=== PATIENT | male | born 1940 | race Caucasian/White ===

== ENCOUNTER 2019-12-11 17:38 | Inpatient (IN) | payer MEDICARE, OTHER ==
[~2019-12-11] VITALS: Ht 190.5 cm; Wt 127.5 kg
[2019-12-11] MEDS ORDERED: ACETAMINOPHEN 325 MG TABLET PO ONE (18:00)
[2019-12-11] MEDS ORDERED: FURO20TA4 PO (18:09)
[2019-12-11] MEDS ORDERED: EZET10TA32 PO (18:09)
[2019-12-11] MEDS ORDERED: DILT120T2 PO (18:09)
[2019-12-11] MEDS ORDERED: ZOLP10TA2 PO (18:09)
[2019-12-11] MEDS ORDERED: SITA100T PO (18:09)
[2019-12-11] MEDS ORDERED: GABA300C PO (18:09)
[2019-12-11] MEDS ORDERED: POTA10TA17 PO (18:09)
[2019-12-11] MEDS ORDERED: GLIM4TAB37 PO (18:09)
[2019-12-11] MEDS ORDERED: RIVA10TA PO (18:09)
[2019-12-11] MEDS ORDERED: DUTA0.5C16 PO (18:09)
[2019-12-11 18:19] LABS: BASOPHILS # (AUTO) 0.1 /CMM (0.0-0.2); BASOPHILS % (AUTO) 0.7 % (0.0-2.0); EOSINOPHILS % (AUTO) 1.6 % (0.0-6.0); HEMATOCRIT 39 % (39-51); HEMOGLOBIN 12.6 g/dL (13.5-17.5); LYMPHOCYTES # (AUTO) 0.7 /CMM (0.8-4.8); LYMPHOCYTES % (AUTO) 8.6 % (20.0-44.0); MEAN CORPUSCULAR HGB CONC 33 g/dl (31.0-36.0); MEAN CORPUSCULAR VOLUME 88 fL (80-96); MONOCYTES # (AUTO) 0.6 /CMM (0.1-1.30); MONOCYTES % (AUTO) 7.7 % (2.0-12.0); NEUTROPHILS # (AUTO) 6.7 /CMM (1.8-8.9); NEUTROPHILS % (AUTO) 81.4 % (43.0-81.0); PLATELET COUNT (AUTO) 157 /CMM (150-450); RED BLOOD CELL COUNT(AUTO) 4.42 MIL/uL (4.5-6.0); WHITE BLOOD COUNT (AUTO) 8.3 K/uL (4.3-11.0)
--- NOTE | 2019-12-11 18:26 | NUR ---
fever x 1 hour. runny nose since yesterday. on augmentin s/p dental procedure last saturday. PT AAOX4, VSS. RR EVEN & UNLABORED. DENIES CP, SOB, DIZZINESS, N/V/D AT THIS TIME. PT SEEN & EVAL'D BY DR. MARIN. WILL CONT TO MONITOR.
[2019-12-11 18:31] LABS: CALCIUM, SERUM 9.1 mg/dL (8.5-10.1); CARBON DIOXIDE 28 mmol/L (21-32); CHLORIDE 99 mmol/L (98-107); CREATININE 2.1 mg/dL (0.6-1.3); GLUCOSE 174 mg/dL (74-106); POTASSIUM 4.9 mmol/L (3.5-5.1); SODIUM SERUM 133 mmol/L (136-145); UREA NITROGEN, BLOOD 46 mg/dL (7-18)
[2019-12-11 18:36] LABS: ALANINE AMINOTRANSFERASE 30 U/L (12-78); ALBUMIN 3.2 g/dL (3.4-5.0); ALKALINE PHOSPHATASE 77 U/L (46-116); ASPARTATE AMINOTRANSFERASE 21 U/L (15-37); BILIRUBIN,DIRECT 0.3 mg/dL (0.0-0.2); BILIRUBIN,TOTAL 1.8 mg/dL (0.2-1.0); TOTAL PROTEIN, SERUM 7.3 g/dL (6.4-8.2)
[2019-12-11] MEDS ORDERED: ACETAMINOPHEN 325 MG TABLET ONE (18:45)
[2019-12-11 18:55] LABS: APPEARANCE,URINE Clear (CLEAR); BILIRUBIN,URINE Negative (NEGATIVE); BLOOD, URINE Small Ery/uL (NEGATIVE); COLOR,URINE Yellow (YELLOW); KETONES,URINE Negative (NEGATIVE); LEUKOCYTE ESTERASE ,URINE Negative (NEGATIVE); NITRITE, URINE Negative (NEGATIVE); PH,URINE 5.5 (5.0-8.0); PROTEIN,URINE >=300 mg/dl (NEGATIVE); UGLUCOSE Negative (NEGATIVE); UROBILINOGEN,URINE 0.2 EU/dL (0.2)
--- NOTE | 2019-12-11 18:58 | NUR ---
LAB CALLED PT COVID-19 (-) NEG.
[2019-12-11] MEDS ORDERED: OLME20TA13 PO (19:35)
[2019-12-11] MEDS ORDERED: FINA1TAB11 PO (19:35)
[2019-12-11 19:38] LABS: BACTERIA,URINE Few /HPF (None Seen); HYALINE CASTS, URINE Rare /LPF (None Seen); MUCUS,URINE Few /LPF (None Seen); SQUAMOUS EPITHELIAL CELL,UR Few /HPF (None Seen); URINE AMORPHOUS URATE Few /HPF (None Seen)
[2019-12-11] MEDS ORDERED: HYDROCODONE/APAP 5/325MG TABLET PO PRN (20:00)
[2019-12-11] MEDS ORDERED: ONDANSETRON HCL/PF 4 MG/2 ML VIAL IVP PRN (20:00)
[2019-12-11] MEDS ORDERED: Z GUARD REMEDY 2 OZ OINT TP PRN (20:00)
[2019-12-11] MEDS ORDERED: MORPHINE SULFATE INJ 2 MG/ML DISP.SYRIN IV PRN (20:00)
[2019-12-11] MEDS ORDERED: MAGNESIUM HYDROXIDE 30 ML UDC PO PRN (20:00)
[2019-12-11] MEDS ORDERED: MAG HYDROX/AL HYDROX/SIMETH 30 ML UDC PO PRN (20:00)
[2019-12-11] MEDS ORDERED: DEXTROSE 50%-WATER 50 ML DISP.SYRIN IV PRN (20:00)
[2019-12-11] MEDS ORDERED: CLINDAMYCIN 600 MG in IV D5W 50 ML IV SCH (21:00)
[2019-12-11] MEDS ORDERED: CLINDAMYCIN IV RTU IN D5W 600 MG/50 ML PIGGYBACK IV SCH (21:00)
--- NOTE | 2019-12-11 21:21 | NUR ---
REPORT GIVEN TO BOONE GARCIA FOR JESUS.
[2019-12-11 21:25] VITALS: BP 150/64
--- NOTE | 2019-12-11 21:25 | NUR ---
TELE/RN NOTES RECEIVED REPORT FROM LIFE SKILLS TRAINER ELODIA, PATIENT IS COMING TO ROOM 326-1.
[2019-12-11] MEDS: ZOLPIDEM TARTRATE 10 MG TABLET PO SCH (22:00)
[2019-12-11] MEDS: BLOOD SUGAR DIAGNOSTIC 1 EACH STRIP IN SCH (22:07)
[2019-12-11] MEDS ORDERED: CLINDAMYCIN 900 MG/6 ML VIAL ONE (22:26)
--- NOTE | 2019-12-11 22:30 | NUR ---
TELE/RN NOTES PATIENT ARRIVED ON TO UNIT AT 2135HRS VIA GURNEY. PATIENT SUSTAINED NO INJURIES DURING TRANSPORT. PATIENT WAS ABLE TO AMBULATE FROM GURNEY TO BED BY SELF SAFELY. PATIENT IS ALERT AND ORIENTED X 4. STATES NO PAIN AT THIS TIME. PATIENT IS STABLE ON ROOM AIR. BREATHING IS EVEN AND UNLABORED. TELE READING A FIB 79 BPM. PATIENT HAS IV ACCESS ON LEFT AC INTACT. PATIENT REFUSED FULL BODY SKIN ASSESSMENT AT THIS TIME, WANTED TO REST PATIENT STATED. PATIENT WAS ABLE TO SIGN BELONGINGS LIST. PATIENT IN NO SIGNS OF DISTRESS. SAFETY MEASURES ARE IN PLACE, BED IS LOCKED AND PLACED IN THE LOW POSITION, SIDE RAILS UP X 2. CALL LIGHT IS WITHIN REACH OF PATIENT. WILL CONTINUE TO MONITOR DURING SHIFT.
[2019-12-11] MEDS: CLINDAMYCIN 600 MG in IV D5W 50 ML IV SCH (23:43)
[2019-12-12] VITALS (8 sets, daily range): BP systolic 137–196; BP diastolic 64–103
--- NOTE | 2019-12-12 06:20 | NUR ---
TELE/RN NOTES PATIENT ACCU CHEK 222. PATIENT REFUSE TO TAKE INSULIN THIS MORNING PER SLIDING SCALE. RISK AND BENEFITS HAVE BEEN EXPLAINED TO PATIENT. WILL CONTINUE TO EDUCATE PATIENT. PATIENT IS ABLE TO EAT WITH NO PROBLEMS.
--- NOTE | 2019-12-12 06:40 | NUR ---
TELE/RN CLOSING NOTES PATIENT IS IN BED RESTING. ALERT AND ORIENTED X 4. TELE READING SR 78 . PATIENTS BREATHING IS EVEN AND UNLABORED. NO SIGNS OF RESPIRATORY DISTRESS NOTED. PATIENT HAS IV ACCESS ON LEFT AC INTACT SL. PATIENT STATES NO PAIN AT THIS TIME. PATIENT IS ABLE TO AMBULATE BY SELF. ALL PATIENTS NEEDS HAVE BEEN MET DURING SHIFT. SAFETY MEASURES ARE IN PLACE, BED IS LOCKED AND PLACED IN THE LOW POSITION, SIDE RAILS UP X 2. CALL LIGHT IS WITHIN REACH. WILL ENDORSE CARE TO DAY SHIFT NURSE.
[2019-12-12] MEDS: BLOOD SUGAR DIAGNOSTIC 1 EACH STRIP IN SCH ×4 (07:12→21:48)
[2019-12-12 07:40] LABS: BASOPHILS % (AUTO) 0.3 % (0.0-2.0); EOSINOPHILS % (AUTO) 2.5 % (0.0-6.0); HEMATOCRIT 37 % (39-51); HEMOGLOBIN 12.2 g/dL (13.5-17.5); LYMPHOCYTES # (AUTO) 0.9 /CMM (0.8-4.8); LYMPHOCYTES % (AUTO) 12.1 % (20.0-44.0); MEAN CORPUSCULAR HGB CONC 33 g/dl (31.0-36.0); MEAN CORPUSCULAR VOLUME 87 fL (80-96); MONOCYTES # (AUTO) 0.6 /CMM (0.1-1.30); NEUTROPHILS # (AUTO) 5.8 /CMM (1.8-8.9); NEUTROPHILS % (AUTO) 77.1 % (43.0-81.0); PLATELET COUNT (AUTO) 159 /CMM (150-450); RED BLOOD CELL COUNT(AUTO) 4.26 MIL/uL (4.5-6.0); WHITE BLOOD COUNT (AUTO) 7.6 K/uL (4.3-11.0)
[2019-12-12 07:43] LABS: CALCIUM, SERUM 8.8 mg/dL (8.5-10.1); CARBON DIOXIDE 25 mmol/L (21-32); CHLORIDE 100 mmol/L (98-107); CREATININE 2.1 mg/dL (0.6-1.3); GLUCOSE 216 mg/dL (74-106); MAGNESIUM 2.3 mg/dL (1.8-2.4); PHOSPHORUS 2.7 mg/dL (2.5-4.9); SODIUM SERUM 133 mmol/L (136-145); UREA NITROGEN, BLOOD 43 mg/dL (7-18)
[2019-12-12 07:50] LABS: CHOLESTEROL 150 mg/dL (<200); HDL CHOLESTEROL 35 mg/dL (40-60); LDL 97 mg/dL (0-99); THYROID STIMULATING HORMONE 1.017 uIU/mL (0.358-3.74); TRIGLYCERIDES 142 mg/dL (30-150)
[2019-12-12] MEDS ORDERED: DILTIAZEM HCL CD 120 MG PO SCH (09:00)
[2019-12-12] MEDS ORDERED: RIVAROXABAN 10 MG TABLET PO SCH (09:00)
[2019-12-12] MEDS: APIXABAN 2.5 MG TABLET PO SCH ×2 (10:00→16:50)
--- NOTE | 2019-12-12 10:00 | NUR ---
MATERIAL CONTROL SPECIALIST NOTES RECEIVED PATIENT FOR CONTINUATION OF CARE.
[2019-12-12] MEDS: DILTIAZEM HCL CD 120 MG PO SCH (10:01)
[2019-12-12] MEDS: EZETIMIBE 10 MG TABLET PO SCH (10:01)
[2019-12-12] MEDS: hydrALAZINE HCL 50 MG TABLET PO SCH ×3 (10:03→17:11)
[2019-12-12] MEDS: PANTOPRAZOLE 40 MG TABLET.DR PO SCH (10:04)
[2019-12-12] MEDS: IV NS 0.9% 1,000 ML IV PRN ×2 (10:41→18:33)
[2019-12-12] MEDS: CLINDAMYCIN 600 MG in IV D5W 50 ML IV SCH ×3 (10:42→23:20)
--- NOTE | 2019-12-12 12:00 | NUR ---
COMMUNITY WORKER NOTES NOTED TEMP OF 103.2, TYLENOL GIVEN ALONG WITH COOLING MEASURES. WILL CONTINUE TO MONITOR.
[2019-12-12] MEDS: ACETAMINOPHEN 325 MG TABLET PO PRN ×2 (12:14→18:19)
[2019-12-12] MEDS: INSULIN REGULAR, HUMAN 100 UNIT/ML 3 ML VIAL SQ PRN ×3 (12:25→21:58)
--- NOTE | 2019-12-12 12:55 | NUR ---
TELECOMMUNICATIONS LINE MECHANIC NOTES TEMP DOWN TO 99.6. ORALLY. WILL CONTINUE TO MONITOR.
--- NOTE | 2019-12-12 15:45 | NUR ---
DATA SYSTEMS MANAGER NOTES ORAL TEMP 98.3.
[2019-12-12] MEDS: GABAPENTIN 300 MG CAPSULE PO SCH (17:11)
--- NOTE | 2019-12-12 18:19 | NUR ---
MEAT DEPARTMENT MANAGER NOTES TEMP OF 99.3, TYLENOL GIVEN, COOLING MEASURES IN PLACE.
--- NOTE | 2019-12-12 18:43 | NUR ---
BRIM CURLER NOTE PATIENT RESTING COMFORTABLY IN BED, ASLEEP. ALERT AND ORIENTED X4. PER PATIENT, LIKES TO SLEEP FLAT IN BED AND HAS NO DIFFICULTLY BREATHING. REMAIN ON ROOM AIR DURING THE SHIFT WITH SPO2 OF 92-100%. NO COUGH OBSERVED. REMAIN ON TELE MONITORING CONTROLLED A-FIB: 90. LEFT AC #18 INTACT AND PATENT INFUSING NS @ 125ML/HR DANNIE WELL. DENIES ANY C/O PAIN NOR DISCOMFORT. BED IN LOWEST POSITION, LOCKED. FREQUENT VISUAL CHECK DONE. IN NO APPARENT DISTRESS.
--- NOTE | 2019-12-12 19:20 | NUR ---
PLASTIC DUPLICATOR NOTES RECEIVED ON BED A/O X4,SLEEPING AROUSABLE TO VERBAL STIMULI,IVF NS AT 125ML/HR RATE IN PROGRESS VIA IV PUMP,SITE PATENT,NO S/S OF INFILTRATION NOTED ON LEFT AC.FALL PRECAUTION OBSERVED FOR ON AND OFF UNSTEADY GAIT.BED ALARM TRIGGERED.CALL LIGHT IN REACH,NEEDS ANTICIPATED.
--- NOTE | 2019-12-12 21:45 | NUR ---
LIVE GAMES DEALER NOTES ACCU-CHECK BLOOD SUGAR CHECK 146,COVERED WITH HUMULIN R 2 UNITS ALONG WITH LANTUS 10 UNITS ORDERED.SNACKS PROVIDED AT BEDSIDE.
[2019-12-12] MEDS: FINASTERIDE (5 MG) 5 MG TABLET PO SCH (21:49)
[2019-12-12] MEDS: ZOLPIDEM TARTRATE 10 MG TABLET PO SCH (21:49)
[2019-12-12] MEDS ORDERED: INSULIN GLARGINE, 100 UNIT/ML CARTRIDGE SQ SCH (22:00)
[2019-12-13] VITALS (7 sets, daily range): BP systolic 117–150; BP diastolic 62–85
--- NOTE | 2019-12-13 05:00 | NUR ---
RIGGER SUPERVISOR NOTES IV SITE LEAKING,NEW SALINE LOCK PLACE ON RIGHT FOREARM #20,SAME IVF INFUSING.
[2019-12-13] MEDS: BLOOD SUGAR DIAGNOSTIC 1 EACH STRIP IN SCH ×4 (05:19→21:41)
[2019-12-13] MEDS: INSULIN REGULAR, HUMAN 100 UNIT/ML 3 ML VIAL SQ PRN ×4 (05:29→21:54)
--- NOTE | 2019-12-13 05:30 | NUR ---
MARKET RESEARCH CONSULTANT NOTES ACCU-CHECK BLOOD SUGAR CHECK 165,COVERED WITH HUMULIN R 3 UNITS PER SLIDING SCALE.
--- NOTE | 2019-12-13 06:25 | NUR ---
HUSBANDRY TECHNICIAN NOTES NO COMPLAINTS OF PAIN.CONTROLLED AFIB ON TELE MONITOR.IVF INFUSING WELL ON RIGHT FOREARM VIA IV PUMP.AMBULATE WITH STANDBY ASSIST.DUE MEDS ADMINISTERED.IN NO ACUTE DISTRESS.WILL ENDORSE TO DAY NURSE FOR JESUS.
--- NOTE | 2019-12-13 07:30 | NUR ---
TELE/RN OPENING NOTE Patient resting in bed, A&O x 4. No complaints of pain/discomfort at this time. Breathing even and non-labored on RA, no SOB noted. No cardiac distress noted. On tele monitor, reading Afib 88. IV access noted on R AC #20 gauge, patent and intact, and running NS @ 125 ml/hr. Sensation from all peripheral extremities intact. Bed locked to its lowest position, side rails x 2 up, call light in hand. Will continue with current medical management.
[2019-12-13 07:36] LABS: BASOPHILS % (AUTO) 0.4 % (0.0-2.0); HEMATOCRIT 36 % (39-51); HEMOGLOBIN 12.1 g/dL (13.5-17.5); LYMPHOCYTES # (AUTO) 1.2 /CMM (0.8-4.8); LYMPHOCYTES % (AUTO) 14.2 % (20.0-44.0); MEAN CORPUSCULAR HGB CONC 34 g/dl (31.0-36.0); MEAN CORPUSCULAR VOLUME 86 fL (80-96); MONOCYTES # (AUTO) 0.7 /CMM (0.1-1.30); NEUTROPHILS # (AUTO) 6.5 /CMM (1.8-8.9); NEUTROPHILS % (AUTO) 74.4 % (43.0-81.0); PLATELET COUNT (AUTO) 167 /CMM (150-450); RED BLOOD CELL COUNT(AUTO) 4.17 MIL/uL (4.5-6.0); WHITE BLOOD COUNT (AUTO) 8.8 K/uL (4.3-11.0)
[2019-12-13 07:54] LABS: ALANINE AMINOTRANSFERASE 31 U/L (12-78); ALBUMIN 2.9 g/dL (3.4-5.0); ALKALINE PHOSPHATASE 61 U/L (46-116); ASPARTATE AMINOTRANSFERASE 4 U/L (15-37); CALCIUM, SERUM 8.4 mg/dL (8.5-10.1); CARBON DIOXIDE 21 mmol/L (21-32); CHLORIDE 102 mmol/L (98-107); CREATININE 2.1 mg/dL (0.6-1.3); GLUCOSE 171 mg/dL (74-106); MAGNESIUM 2.3 mg/dL (1.8-2.4); PHOSPHORUS 3.3 mg/dL (2.5-4.9); POTASSIUM 4.6 mmol/L (3.5-5.1); SODIUM SERUM 134 mmol/L (136-145); TOTAL PROTEIN, SERUM 6.6 g/dL (6.4-8.2); UREA NITROGEN, BLOOD 41 mg/dL (7-18)
[2019-12-13] MEDS: PANTOPRAZOLE 40 MG TABLET.DR PO SCH (08:29)
[2019-12-13] MEDS: EZETIMIBE 10 MG TABLET PO SCH (08:29)
[2019-12-13] MEDS: GABAPENTIN 300 MG CAPSULE PO SCH ×2 (08:29→17:43)
[2019-12-13] MEDS: CLINDAMYCIN 600 MG in IV D5W 50 ML IV SCH ×2 (08:30→15:20)
[2019-12-13] MEDS: DILTIAZEM HCL CD 120 MG PO SCH (08:37)
[2019-12-13] MEDS: hydrALAZINE HCL 50 MG TABLET PO SCH ×3 (08:37→17:43)
[2019-12-13] MEDS ORDERED: FINASTERIDE 1 MG TABLET PO SCH (09:00)
--- NOTE | 2019-12-13 10:00 | NUR ---
TELE/RN NOTE Spoke with patient's , Nicolasa, states the need to speak with supervisor type bar and segment for plan of care after the lexiscan stress test. Also, and patient permits to release medical records from patient's hospitalization in [facility] on February-March 2019 to inform MDs of medical history. Notified Dr. Shanks.
--- NOTE | 2019-12-13 11:00 | NUR ---
TELE/RN NOTE Obtained procedure consent from pt for lexiscan stress test tomorrow. No anesthesia or blood transfusion consent needed, confirmed with recharger. Educated patient the importance of no caffeine for today and tomorrow. Patient will be NPO at midnight. Will continue to monitor for any changes of condition.
[2019-12-13] MEDS: METOPROLOL TARTRATE 50 MG TABLET PO SCH ×2 (12:01→17:43)
--- NOTE | 2019-12-13 13:26 | NUR ---
TELE/RN NOTE Patient states he has had the flu vaccine on 10/2019. When asked if he had the pneumococcal vaccine, patient states "I am not sure, I will check with my doctor."
--- NOTE | 2019-12-13 15:54 | NUR ---
TELE/RN NOTE Faxed patient's the request to authorize release of medical records from [facility] during hospitalization period of February-March 2019.
[2019-12-13] MEDS: IV NS 0.9% 1,000 ML IV PRN (19:24)
--- NOTE | 2019-12-13 19:30 | NUR ---
tele wastewater analyst initial notes received report from am nurse Cindy and seen pt in bed awake and alert watching Tv at this time. Denies any pain or any discomfort. Not in any acute distress also . Pt aware of his stress test in am . i also remind him to be NPO after 12 MN for his lexiscan test. Sinus Rhythm per monitor. kept him warm and comfortably in bed and place call light at reach.
--- NOTE | 2019-12-13 19:35 | NUR ---
TELE/RN CLOSING NOTE Patient resting in bed, A&O x 4. No complaints of pain/discomfort at this time. Breathing even and non-labored on RA, no SOB noted. No cardiac distress noted. On tele monitor, reading Afib 85. IV access noted on R AC #20 gauge, patent and intact, and running NS @ 125 ml/hr. Sensation from all peripheral extremities intact. Fall precautions maintained. Will endorse to slot shift manager nurse.
[2019-12-13] MEDS: ZOLPIDEM TARTRATE 10 MG TABLET PO SCH (21:41)
[2019-12-13] MEDS: FINASTERIDE (5 MG) 5 MG TABLET PO SCH (21:41)
[2019-12-13] MEDS ORDERED: INSULIN GLARGINE, 100 UNIT/ML CARTRIDGE SQ SCH (22:00)
[2019-12-14] VITALS: BP 123/53
[2019-12-14] MEDS: CLINDAMYCIN 600 MG in IV D5W 50 ML IV SCH ×3 (00:46→16:40)
--- NOTE | 2019-12-14 01:15 | NUR ---
tele delicatessen department manager notes' hold lopressor per Md ordered.
[2019-12-14 04:00] VITALS: BP 121/68
[2019-12-14] MEDS: METOPROLOL TARTRATE 50 MG TABLET PO SCH ×4 (06:00→17:58)
[2019-12-14] MEDS: BLOOD SUGAR DIAGNOSTIC 1 EACH STRIP IN SCH ×3 (06:24→17:49)
[2019-12-14] MEDS: INSULIN REGULAR, HUMAN 100 UNIT/ML 3 ML VIAL SQ PRN ×2 (06:25→12:06)
[2019-12-14] MEDS: IV NS 0.9% 1,000 ML IV PRN (06:26)
--- NOTE | 2019-12-14 06:45 | NUR ---
tele windmill mechanic closing notes
[2019-12-14 07:04] LABS: BASOPHILS % (AUTO) 0.6 % (0.0-2.0); EOSINOPHILS % (AUTO) 5.6 % (0.0-6.0); HEMATOCRIT 36 % (39-51); HEMOGLOBIN 11.7 g/dL (13.5-17.5); MEAN CORPUSCULAR HGB CONC 33 g/dl (31.0-36.0); MEAN CORPUSCULAR VOLUME 88 fL (80-96); MONOCYTES # (AUTO) 0.8 /CMM (0.1-1.30); MONOCYTES % (AUTO) 9.6 % (2.0-12.0); NEUTROPHILS # (AUTO) 4.8 /CMM (1.8-8.9); NEUTROPHILS % (AUTO) 59.2 % (43.0-81.0); PLATELET COUNT (AUTO) 167 /CMM (150-450); RED BLOOD CELL COUNT(AUTO) 4.06 MIL/uL (4.5-6.0); WHITE BLOOD COUNT (AUTO) 8.1 K/uL (4.3-11.0)
[2019-12-14] MEDS: PANTOPRAZOLE 40 MG TABLET.DR PO SCH (07:30)
[2019-12-14 07:51] LABS: CALCIUM, SERUM 8.6 mg/dL (8.5-10.1); CARBON DIOXIDE 25 mmol/L (21-32); CHLORIDE 104 mmol/L (98-107); CREATININE 2.3 mg/dL (0.6-1.3); GLUCOSE 145 mg/dL (74-106); MAGNESIUM 2.6 mg/dL (1.8-2.4); PHOSPHORUS 4.2 mg/dL (2.5-4.9); POTASSIUM 4.9 mmol/L (3.5-5.1); SODIUM SERUM 135 mmol/L (136-145); UREA NITROGEN, BLOOD 44 mg/dL (7-18)
--- NOTE | 2019-12-14 07:54 | NUR ---
RN NOTE THE PATIENT IS RECEIVED IN BED. PATIENT IS ALERT AND ORIENTED X4. IN ROOM AIR AND DENIES SOB. RESPIRATION REGULAR AND UNLABORED. DENIES PAIN. THE PATIENT IN NO APPARENT DISTRESS. RFA G 20 PATENT AND NS INFUSING AT 125ML/HR. NO S/S INFILTRATION NOTED. TELE BOX READING IS AFIB 68. PATIENT NPO SINCE MIDNIGHT PREPARATION FOR A TEST. BED LOW AND LOCKED. SIDE RAILS UP X3. CALL LIGHT WITHIN REACH. WILL CONTINUE TO MONITOR.
[2019-12-14 08:00] VITALS: BP 157/61
[2019-12-14] MEDS ORDERED: REGADENOSON 0.4 MG/5 ML DISP.SYRIN IVP ONE (08:00)
--- NOTE | 2019-12-14 08:22 | NUR ---
RN NOTE THE PATIENT IS TAKEN TO NUCLEAR MEDICINE DEPARTMENT FOR A TEST. PATIENT LEFT THE UNIT IN STABLE CONDITION.
--- NOTE | 2019-12-14 09:55 | NUR ---
RN NOTE THE PATIENT IS BROUGHT BACK FROM NUCLEAR MEDICINE DEPARTMENT. PATIENT IN STABLE CONDITION.
[2019-12-14] MEDS: EZETIMIBE 10 MG TABLET PO SCH (10:29)
[2019-12-14] MEDS: GABAPENTIN 300 MG CAPSULE PO SCH ×2 (10:29→17:41)
[2019-12-14] MEDS: DILTIAZEM HCL CD 120 MG PO SCH (10:30)
[2019-12-14] MEDS: hydrALAZINE HCL 50 MG TABLET PO SCH ×3 (10:30→17:41)
--- NOTE | 2019-12-14 11:02 | NUR ---
RN NOTE THE PATIENT IS TAKEN TO THE NUCLEAR MEDICINE DEPARTMENT TO FINISH STRESS TEST. PATIENT LEFT THE UNIT IN STABLE CONDITION.
[2019-12-14 12:00] VITALS: BP 133/64
[2019-12-14 16:31] LABS: *SPE A/G RATIO 1.2 (0.7-1.7); *SPE ALBUMIN 3.2 g/dL (2.9-4.4); *SPE ALPHA-1-GLOBULIN 0.2 g/dL (0.0-0.4); *SPE ALPHA-2-GLOBULIN 0.7 g/dL (0.4-1.0); *SPE BETA GLOBULIN 0.8 g/dL (0.7-1.3); *SPE GLOBULIN, TOTAL 2.7 g/dL (2.2-3.9); *SPE M-SPIKE Not Observed g/dL (Not Observed); *SPEGAMMA GLOBULIN 0.9 g/dL (0.4-1.8)
[2019-12-14] MEDS ORDERED: WARFARIN SODIUM 5 MG TABLET PO SCH (17:00)
[2019-12-14 17:58] VITALS: BP 124/65
--- NOTE | 2019-12-14 18:00 | NUR ---
RN NOTE THE PATIENT`S BLOOD SUGAR IS 152. HOWEVER, PATIENT REFUSED INSULIN DESPITE EXPLAINING RISKS AND BENEFITS.
--- NOTE | 2019-12-14 18:10 | NUR ---
RN NOTE THE PATIENT ALERT AND ORIENTED X4. IN ROOM AIR AND SATURATION IS AT 98%. DENIES SOB. RESPIRATION REGULAR AND UNLABORED. DENIES PAIN. THE PATIENT IN NO APPARENT DISTRESS. REMOVED IV FROM RFA AND NO BLEEDING NOTED. THE SITE COVER WITH 2X2 AND INSTRUCTED TO REMOVE IT IN 10-15 MIN IF NO BLEEDING NOTED. PATIENT IS EDUCATED HOW TO INJECT ORDERED LOVENOX AND HE VERBALIZED UNDERSTANDING AND RETURNED DEMONSTRATION. THE PATIENT PROVIDED ALL DISCHARGE EDUCATION AND HE VERBALIZED UNDERSTANDING. THE PATIENT PROVIDED THE PRESCRIPTION AND THE COPY IS SAVED IN THE CHART. THE PATIENT GOT PICKED UP BY HIS . THE PATIENT LEFT THE HOSPITAL IN STABLE CONDITION.
== END 2019-12-14 18:10 | disposition home health service (06) | DRG 281 ==
LOC: ER 17:43 → TELE 19:56
PROVIDERS: ADMIT Nurse Practitioner Acute Care; ATTEND Nurse Practitioner Acute Care
DX: I21.4 Non-ST elevation (NSTEMI) myocardial infarction (principal); N17.9 Acute kidney failure, unspecified; N39.0 Urinary tract infection, site not specified; I48.20 Chronic atrial fibrillation, unspecified; E87.1 Hypo-osmolality and hyponatremia; E44.1 Mild protein-calorie malnutrition; I12.9 Hypertensive chronic kidney disease with stage 1 through stage 4 chronic kidney disease, or unspecified chronic kidney disease; N18.9 Chronic kidney disease, unspecified; I25.10 Atherosclerotic heart disease of native coronary artery without angina pectoris; N40.0 Benign prostatic hyperplasia without lower urinary tract symptoms; E78.5 Hyperlipidemia, unspecified; E78.00 Pure hypercholesterolemia, unspecified; E11.22 Type 2 diabetes mellitus with diabetic chronic kidney disease; Z79.84 Long term (current) use of oral hypoglycemic drugs; Z79.899 Other long term (current) drug therapy; E66.9 Obesity, unspecified; Z68.33 Body mass index [BMI] 33.0-33.9, adult; K04.7 Periapical abscess without sinus; E11.21 Type 2 diabetes mellitus with diabetic nephropathy; Z79.01 Long term (current) use of anticoagulants; N28.1 Cyst of kidney, acquired
CPT/HCPCS: 36415; 71045-TC; 76770-TC; 80048-TC; 80053-TC; 80061-TC; 80076-TC; 81000-TC; 82962-TC; 83605-TC; 83735-TC; 84100-TC; 84155; 84165; 84439-TC; 84443-TC; 84484-TC; 85025-TC; 85610-TC; 87040-TC; 87081-TC; 93307-TC; A9502; C9803; G0378; J1815; J2785; J3490; J7030; J7050; J7060

== ENCOUNTER 2019-12-18 12:45 | Outpatient (CLI) | payer MEDICARE, OTHER ==
[~2019-12-18 12:45] MED LIST: DILT120T2 PO; EZET10TA32 PO; FINA1TAB11 PO; FURO20TA4 PO; GABA300C PO; GLIM4TAB37 PO; OLME20TA13 PO; POTA10TA17 PO; RIVA10TA PO; SITA100T PO; ZOLP10TA2 PO
== END 2019-12-18 23:59 | disposition home or self-care (01) ==
LOC: LAB 12:45
PROVIDERS: ATTEND Internal Medicine Interventional Cardiology
DX: Z79.01 Long term (current) use of anticoagulants (principal)
CPT/HCPCS: 36415; 85610-TC

== ENCOUNTER 2019-12-21 14:50 | Outpatient (CLI) | payer MEDICARE, OTHER | END 2019-12-21 23:59 | disposition home or self-care (01) | LOC: LAB 14:50 | PROVIDERS: ATTEND Internal Medicine Interventional Cardiology | DX: I48.91 Unspecified atrial fibrillation (principal) | CPT/HCPCS: 36415; 85610-TC ==

== ENCOUNTER 2019-12-25 12:18 | Outpatient (CLI) | payer MEDICARE, OTHER | END 2019-12-25 23:59 | disposition home or self-care (01) | LOC: LAB 12:18 | PROVIDERS: ATTEND Internal Medicine Interventional Cardiology | DX: I48.91 Unspecified atrial fibrillation (principal) | CPT/HCPCS: 36415; 85610-TC ==

== ENCOUNTER 2019-12-28 13:46 | Outpatient (CLI) | payer MEDICARE, OTHER | END 2019-12-28 23:59 | disposition home or self-care (01) | LOC: LAB 13:46 | PROVIDERS: ATTEND Internal Medicine Interventional Cardiology | DX: I48.91 Unspecified atrial fibrillation (principal) | CPT/HCPCS: 36415; 85610-TC ==

== ENCOUNTER 2020-01-04 13:50 | Outpatient (CLI) | payer MEDICARE, OTHER | END 2020-01-04 23:59 | disposition home or self-care (01) | LOC: LAB 13:50 | PROVIDERS: ATTEND Internal Medicine Interventional Cardiology | DX: I48.91 Unspecified atrial fibrillation (principal) | CPT/HCPCS: 36415; 85610-TC ==

== ENCOUNTER 2020-04-21 02:01 | Inpatient (IN) | payer MEDICARE, OTHER ==
[~2020-04-21] VITALS: Ht 190.5 cm; Wt 121.1 kg
--- NOTE | 2020-04-21 02:19 | NUR ---
PATIENT CAME TO THE ER CHANNING FROM HOME C/O NAUSEA AND VOMITING. PATIENT STATES THAT HE HAD BEEN VOMITING SINCE 2200 OF LAST NIGHT (04/20/20) AFTER DRINKING THE SAME BOWL OF SOUP THAT HIS HAVE HAD. THE DID NOT DISPLAY ANY SIMILAR SYMPTOMS THE PATIENT AND IS FINE. PATIENT IS AAOX4. NO SOB. BREATHING EVENLY AND UNLABORED ON ROOM AIR. CONNECTED TO THE MONITOR.
[2020-04-21] MEDS ORDERED: ONDANSETRON HCL/PF 4 MG/2 ML VIAL ONE (02:22)
--- NOTE | 2020-04-21 02:29 | NUR ---
BLOOD COLLECTED ANDS ENT TO THE LAB.
[2020-04-21] MEDS ORDERED: ONDANSETRON HCL/PF 4 MG/2 ML VIAL IVP ONE (02:30)
[2020-04-21 02:45] LABS: BASOPHILS # (AUTO) 0.1 /CMM (0.0-0.2); BASOPHILS % (AUTO) 0.7 % (0.0-2.0); EOSINOPHILS % (AUTO) 0.6 % (0.0-6.0); HEMATOCRIT 39 % (39-51); LYMPHOCYTES # (AUTO) 0.3 /CMM (0.8-4.8); LYMPHOCYTES % (AUTO) 2.4 % (20.0-44.0); MEAN CORPUSCULAR HGB CONC 33 g/dl (31.0-36.0); MEAN CORPUSCULAR VOLUME 86 fL (80-96); MONOCYTES # (AUTO) 0.5 /CMM (0.1-1.30); MONOCYTES % (AUTO) 3.4 % (2.0-12.0); NEUTROPHILS # (AUTO) 12.6 /CMM (1.8-8.9); NEUTROPHILS % (AUTO) 92.9 % (43.0-81.0); PLATELET COUNT (AUTO) 231 /CMM (150-450); RED BLOOD CELL COUNT(AUTO) 4.56 MIL/uL (4.5-6.0); WHITE BLOOD COUNT (AUTO) 13.5 K/uL (4.3-11.0)
--- NOTE | 2020-04-21 02:51 | NUR ---
Addendum: 04/21/20 at 0252 by GENE JEOVANNY'S NUMBER.
[2020-04-21 02:53] LABS: CALCIUM, SERUM 9.3 mg/dL (8.5-10.1); CARBON DIOXIDE 25 mmol/L (21-32); CHLORIDE 103 mmol/L (98-107); CREATININE 2.3 mg/dL (0.6-1.3); GLUCOSE 235 mg/dL (74-106); POTASSIUM 4.9 mmol/L (3.5-5.1); SODIUM SERUM 139 mmol/L (136-145); UREA NITROGEN, BLOOD 51 mg/dL (7-18)
[2020-04-21 02:59] LABS: ALANINE AMINOTRANSFERASE 33 U/L (12-78); ALBUMIN 3.5 g/dL (3.4-5.0); ALKALINE PHOSPHATASE 83 U/L (46-116); ASPARTATE AMINOTRANSFERASE 21 U/L (15-37); BILIRUBIN,DIRECT 0.1 mg/dL (0.0-0.2); BILIRUBIN,TOTAL 0.8 mg/dL (0.2-1.0); LIPASE 315 U/L (73-393); TOTAL PROTEIN, SERUM 7.6 g/dL (6.4-8.2)
--- NOTE | 2020-04-21 04:28 | NUR ---
MICHELE CARCAMO LAW ON THE PHONE WITH ALPA RUTLEDGE NP
--- NOTE | 2020-04-21 04:45 | NUR ---
covid negative per lab
--- NOTE | 2020-04-21 05:12 | NUR ---
TELE 313-2
--- NOTE | 2020-04-21 05:19 | NUR ---
REPORT CALLED TO MARKETING PROFESSIONAL LYNN. WILL TRANSPORT PT VIA ACLS PROTOCOL.
[2020-04-21] MEDS ORDERED: HYDROCODONE/APAP 5/325MG TABLET PO PRN (05:30)
[2020-04-21] MEDS ORDERED: IV NS 0.9% 1,000 ML IV PRN (05:30)
[2020-04-21] MEDS ORDERED: ACETAMINOPHEN 325 MG TABLET PO PRN (05:30)
[2020-04-21] MEDS ORDERED: ONDANSETRON HCL/PF 4 MG/2 ML VIAL IVP PRN (05:30)
[2020-04-21] MEDS ORDERED: DEXTROSE 50%-WATER 50 ML DISP.SYRIN IV PRN (05:30)
[2020-04-21] MEDS ORDERED: Z GUARD REMEDY 2 OZ OINT TP PRN (05:30)
[2020-04-21] MEDS ORDERED: MAGNESIUM HYDROXIDE 30 ML UDC PO PRN (05:30)
[2020-04-21] MEDS ORDERED: INSULIN REGULAR, HUMAN 100 UNIT/ML 3 ML VIAL SQ PRN (05:30)
--- NOTE | 2020-04-21 05:34 | NUR ---
patient taken up to assigned room for neva.
--- NOTE | 2020-04-21 05:40 | NUR ---
patient arrived to unit via stretcher and ambulated to bed. a/o x4. piv 18 ga in r. forearm saline locked. patient reports no pain and n/v has subsided. vss. safety measures in place. bed in low position and locked with side rails up x2. call mahoney within reach.
[2020-04-21 06:00] VITALS: BP 134/76
[2020-04-21] MEDS ORDERED: BLOOD SUGAR DIAGNOSTIC 1 EACH STRIP IN SCH (07:30)
--- NOTE | 2020-04-21 07:40 | NUR ---
ms rfn received on bed, awake,alert,oriented x4,not in any form of distress, respirations even and unlabored,no sob noted, lungs are clear,abdomen soft,positive bowel sounds,denies pain at this time, patient really wants to go home at this time,will moniotr and update patient.
--- NOTE | 2020-04-21 07:45 | NUR ---
ms rn was seen by dr. mcconnell and w/ order to dc home now.
--- NOTE | 2020-04-21 07:50 | NUR ---
ms rn was seen by erlinda dump truck operator for d/c today w/ orders.
--- NOTE | 2020-04-21 08:15 | NUR ---
ms post graduate internship instructions given and understood, rx given, patient went home ,cook pickled meat by ,all needs attended.
[2020-04-21] MEDS ORDERED: DILTIAZEM HCL CD 120 MG PO SCH (09:00)
[2020-04-21] MEDS ORDERED: GABAPENTIN 300 MG CAPSULE PO SCH (09:00)
[2020-04-21] MEDS ORDERED: RIVAROXABAN 10 MG TABLET PO SCH (09:00)
[2020-04-21] MEDS ORDERED: GLIMEPIRIDE 4 MG TABLET PO SCH (09:00)
[2020-04-21] MEDS ORDERED: FINASTERIDE (5 MG) 5 MG TABLET PO SCH (09:00)
[2020-04-21] MEDS ORDERED: ZOLPIDEM TARTRATE 10 MG TABLET PO SCH (22:00)
== END 2020-04-21 09:00 | disposition home or self-care (01) | DRG 281 ==
LOC: ER 02:10 → TELE 05:19
PROVIDERS: ADMIT Nurse Practitioner Acute Care; ATTEND Nurse Practitioner Acute Care
DX: I21.A1 Myocardial infarction type 2 (principal); I48.20 Chronic atrial fibrillation, unspecified; N40.0 Benign prostatic hyperplasia without lower urinary tract symptoms; I12.9 Hypertensive chronic kidney disease with stage 1 through stage 4 chronic kidney disease, or unspecified chronic kidney disease; N18.9 Chronic kidney disease, unspecified; E11.22 Type 2 diabetes mellitus with diabetic chronic kidney disease; Z20.822 Contact with and (suspected) exposure to COVID-19; E78.5 Hyperlipidemia, unspecified; I25.10 Atherosclerotic heart disease of native coronary artery without angina pectoris; Z79.84 Long term (current) use of oral hypoglycemic drugs; Z79.899 Other long term (current) drug therapy; Z79.01 Long term (current) use of anticoagulants; E66.9 Obesity, unspecified; Z68.33 Body mass index [BMI] 33.0-33.9, adult
CPT/HCPCS: 36415; 71045-TC; 80048-TC; 80076-TC; 82962-TC; 83690-TC; 84484-TC; 85025-TC; 87081-TC; C9803; G0378; J1815; J2405; J7030